=== PATIENT | female | born 1930 | race Caucasian/White ===

== ENCOUNTER 2016-12-16 11:25 | Inpatient (IN) | payer OTHER ==
[~2016-12-16] VITALS: Ht 167.6 cm; Wt 54.4 kg
--- NOTE | ~2016-12-16 | HC ---
[facility] [place] [address] CONSULTATION Name: ONUR SCHULTZ Room #: 546-P [facility] IN M.R.#: [id number] Admission: 12/16/16 Attend Phys: Nhung Funes MD Discharge: Date of : 32 Report #: [id number] THIS REPORT FOR: //name// CC: Nhung Crowley MD DATE OF SERVICE: 12/17/2016 ORTHOPEDIC CONSULTATION NOTE REASON FOR CONSULTATION: Right pelvis fracture. HISTORY OF PRESENT ILLNESS: The patient is an 86-year-old female who is somewhat of a poor historian. She apparently was walking at her assisted living facility when she fell. She reports right back pain to me. She denies any extremity pain. She arrived via EMS. Denies loss of consciousness. REVIEW OF SYSTEMS: MUSCULOSKELETAL: See HPI. NEUROLOGIC: Denies numbness or tingling in her extremities. PAST MEDICAL HISTORY: Obtained partially from the patient and partially from the medical record. Medical history includes atrial fibrillation, history of hip fracture fixation of both the right and left and history of urinary tract infection. Parkinson disease, dementia and depression. ALLERGIES: No known drug allergies. MEDICATIONS: Her home medications include propranolol, carbidopa, donepezil, acetaminophen, aspirin, multivitamin, iron with minerals, tramadol and sertraline. SOCIAL HISTORY: She uses a walker at her assisted living facility. She lives there with her . Denies smoking. Alcohol use, she does use alcohol, but frequency is unknown. PAST SURGICAL HISTORY: Bilateral hip fracture fixation. PHYSICAL EXAMINATION: GENERAL: The patient is alert and oriented to person only. She does actually converse well, although she speaks very quietly and her speech is not always clear. She does cooperate with the physical examination. VITAL SIGNS: Most recent vital signs show temperature of 36.3, heart rate is 91, respiratory rate 16, blood pressure 118/50 and pulse oximetry is 92% on room air. [facility] [address] [place] [address] CONSULTATION Name: ONUR SCHULTZ Room #: 546-P [facility] IN [facility]#: [id number] Admission: 12/16/16 Attend Phys: Nhung Funes MD Discharge: Date of : 32 Report #: [id number] EXTREMITIES: Examination of her bilateral upper extremities, skin is clean, dry and intact. She has brisk capillary refill. She moves her extremities well. There is no tenderness to palpation to the bilateral hands, wrists, forearms, elbows, shoulders or sternal clavicles. There is no pain with range of motion of these joints. She has diffuse arthritic changes. No tenderness to palpation. Bilateral lower extremity exam, sensation is intact to light touch throughout. She has brisk capillary refill. EHL, FHL, dorsiflexion and plantar flexion are intact. She has no tenderness to palpation to the bilateral legs, ankles or feet. There is no edema, some diffuse and non-reproducible bilateral knee tenderness, but no pain with knee range of motion. No pain with hip range of motion. There is no lumbar or sacral tenderness. LABORATORY DATA: Laboratory studies done on 12/16/2016 show white blood cell count of 5.4, hemoglobin 14.7, hematocrit 43.2 and platelet count 168,000. INR is 1. Chemistry is grossly normal. RADIOGRAPHS: AP, pelvis and then a CT scan of the pelvis shows right inferior and superior pubic rami fractures and a minimally displaced right sacral ala fracture. IMPRESSION AND PLAN: Right pubic rami and sacral ala fractures in an 86-year-old female. I discussed the diagnosis as well as the recommended treatment of weightbearing as tolerated with physical therapy. I discussed she will most likely require some pain medication. I also strongly encouraged her to be sitting up as much as possible and to be ambulatory when possible to avoid complications associated with bed rest, which would include pneumonia, pulmonary complications and decubitus ulcers. Questions were encouraged and answered to the best of my ability. I will continue to follow along. By: [id number] Annette Castañeda MD /zackery
--- NOTE | ~2016-12-16 | EKG ---
[address] [address] ELECTROCARDIOGRAM REPORT Name: ONUR SCHULTZ Room #: 546-P ADM IN M.R.#: [id number] Admission: 12/16/16 Attend Phys: Nhung Funes MD Discharge: Date of : 31 Report #: [id number] THIS REPORT FOR: //name// [facility] ED Test Date: 2016-12-16 Test Time: 11:34:40 Pat Name: ONUR SCHULTZ Department: Room: 546 Gender: F Cowlman: [place]IS[place] : 1930 Requested By: Fuentes Christopher Order Number: [id number] MD: Diogenes Tanner Measurements Intervals [place] Rate: 79 P: 50 W[place]: 141 QRS: 40 QRSD: 95 T: 1 QT: 433 QTc: 497 Interpretive Statements Sinus rhythm RSR' in V1 or V2, probably normal variant Borderline T abnormalities, Borderline prolonged QT interval Compared to ECG 04/12/2015 12:53:14 ST and T wave abnormality is less pronounced Atrial fibrillation no longer present Electronically Signed On 12-17-2016 10:56:13 CDT by Diogenes Tanner [email or web address] <ELECTRONICALLY SIGNED> By: Diogenes Tanner MD, FACC 12/17/16 1056 [id number] Diogenes Tanner MD, [facility] /EPI
[~2016-12-16 11:25] MED LIST: AMBIEN 5 MG TABL5 M1 PO; APAP W/CODEINE1 TA2 PO; ARICEPT 5 MG TAB5 MG PO; ASPIR 8181 MG; CARBIDOPA-LEVO1 EAC8 PO; CARBIDOPA/LEVO1 TA1 PO; CARBIDOPA/LEVO1 TAB PO; CEFTIN 250 MG250 MG PO; CIPROFLOXACIN500 M1 PO; COLACE100 MG PO; DETROL2 M1 PO; DIPHENHIST25 M2 PO; ENOXAPARIN30 MG/0.1 SUBQ; FLAGYL500 MG PO; FLOVENT HFA 1110 MCG INH; HYDROCODONE-AP1 EAC6 PO; IBUPROFEN200 M2 PO; INDERAL40 MG PO; LORATIDINE 10 M10 M1 PO; NAMENDA 10 MG T10 MG PO; NORCO 5-325 TA1 EACH PO; PROPRANOLOL 20M20 M1 PO; TYLENOL325 MG PO; VITAFUSION PO; ZOLOFT; ZOLOFT 50 MG TA50 M1 PO; ZOLOFT100 MG PO
[2016-12-16 11:26] VITALS: BP 130/53
[2016-12-16 11:45] LABS: HEMATOCRIT 43.2 % (37.0-47.0); HEMOGLOBIN 14.7 gm/dL (12.0-15.0); MCH 31.7 pg (26.0-34.0); MCHC 34.1 g/dL (28.0-37.0); MCV 93.1 fL (80.0-100.0); RBC 4.64 mil/uL (4.20-5.00); RDW 14.1 % (10.5-14.5); WBC 5.4 thou/uL (4.0-11.0)
[2016-12-16] MEDS ORDERED: UNICOMPLEX M TA1 TA1 PO (11:47)
[2016-12-16] MEDS ORDERED: TRAMADOL 50 MG50 MG PO (11:48)
[2016-12-16 11:52] LABS: POTASSIUM 3.9 mmol/L (3.5-5.1)
[2016-12-16 11:55] LABS: PROTIME 10.4 Seconds (9.3-11.4)
[2016-12-16 13:13] VITALS: BP 130/53
[2016-12-16 20:00] VITALS: BP 83/38
[2016-12-17 04:03] VITALS: BP 118/50
[2016-12-17 07:55] VITALS: BP 124/57
[2016-12-18 07:05] VITALS: BP 134/62
[2016-12-18 16:18] VITALS: BP 150/67
[2016-12-18 19:55] VITALS: BP 125/64
[2016-12-19 04:31] VITALS: BP 111/55
[2016-12-19 05:01] LABS: ABSOLUTE NEUTROPHILS 3.5 thou/uL (1.4-8.2); EOSINOPHILS 4.6 % (0.0-3.0); HEMATOCRIT 34.5 % (37.0-47.0); MCH 31.9 pg (26.0-34.0); MCHC 34.7 g/dL (28.0-37.0); MCV 91.9 fL (80.0-100.0); MONOCYTES 6.8 % (1.0-8.0); PLATELET COUNT 127 thou/uL (150-400); POLYS 65.6 % (36.0-66.0); RBC 3.75 mil/uL (4.20-5.00); RDW 13.8 % (10.5-14.5); WBC 5.4 thou/uL (4.0-11.0)
[2016-12-19 05:03] LABS: MANUAL DIFF NO
[2016-12-19 05:28] LABS: ALBUMIN 2.6 g/dL (3.4-5.0); CALCIUM 8.3 mg/dL (8.5-10.1); CREATININE 0.6 mg/dL (0.6-1.0); MAGNESIUM 1.7 mg/dL (1.8-2.4); POTASSIUM 3.4 mmol/L (3.5-5.1); TOTAL BILIRUBIN 0.8 mg/dL (<0.1-1.0); TOTAL PROTEIN 5.8 g/dL (6.4-8.2)
[2016-12-19 07:20] VITALS: BP 118/58
[2016-12-19] MEDS ORDERED: TRAMADOL 50 MG50 MG PO (10:56)
== END 2016-12-19 15:50 | disposition hospice, home (50) | DRG 535 ==
LOC: ER 11:25 → EROBS 12:53 → 5S 12:53
PROVIDERS: Nurse Practitioner; Physician Assistant
DX: S32.591A Other specified fracture of right pubis, initial encounter for closed fracture (principal); E43 Unspecified severe protein-calorie malnutrition; S32.10XA Unspecified fracture of sacrum, initial encounter for closed fracture; Z66 Do not resuscitate; Z51.5 Encounter for palliative care; G20 Parkinson's disease; I10 Essential (primary) hypertension; F02.80 Dementia in other diseases classified elsewhere, unspecified severity, without behavioral disturbance, psychotic disturbance, mood disturbance, and anxiety; F32.9 Major depressive disorder, single episode, unspecified; W18.30XA Fall on same level, unspecified, initial encounter; Y93.01 Activity, walking, marching and hiking; Z79.82 Long term (current) use of aspirin; Z79.899 Other long term (current) drug therapy; Z87.81 Personal history of (healed) traumatic fracture; Y92.89 Other specified places as the place of occurrence of the external cause; Y99.8 Other external cause status
CPT/HCPCS: 10086